=== PATIENT | female | born 1990 | race Hispanic/Latino ===

== ENCOUNTER 2019-05-09 15:25 | Inpatient (IN) | payer MEDICAID, OTHER ==
[2019-05-09 17:02] LABS: Mean Corpuscular Volume 86 fl (79-97)
[2019-05-09 17:08] LABS: Eosinophils % (Auto) 1.6 % (0.0-4.3); Mean Corpuscular HGB Conc 33 % (30-34); Monocytes # (Auto) 0.6 K/mm3 (0.0-0.8); Platelet Count 320 K/mm3 (140-440); Red Blood Count 1.81 M/mm3 (3.65-5.03)
[2019-05-09 17:15] LABS: Hemoglobin 5.1 gm/dl (10.1-14.3)
[2019-05-09 17:16] LABS: Hematocrit 15.6 % (30.3-42.9); Red Cell Distribution Width 28.3 % (13.2-15.2)
[2019-05-09] MEDS ORDERED: SODIUM CHLORIDE 0.9% 500 ML 500 ML IV ONE (17:18)
[2019-05-09] MEDS ORDERED: HYDROcodone/ACETAMINOPHEN 5-325 MG TAB PO ONE (17:20)
[2019-05-09] MEDS ORDERED: ONDANSETRON 4 MG ODT TAB PO ONE (17:20)
--- NOTE | 2019-05-09 17:28 | Emergency Department Report ---
ED General Adult HPI - General Chief complaint: Vaginal Bleeding Stated complaint: VAG BLEED Time Seen by Provider: 05/09/19 17:14 Source: patient Mode of arrival: Stretcher Limitations: No Limitations - History of Present Illness Initial comments: Patient presents to the emergency department with a chief complaint of vaginal bleeding that has been consistent and heavy since the day after Thanksgiving. Patient has a history of dysfunctional uterine bleeding and states she's had multiple blood transfusions in the past secondary to the vaginal bleeding. Patient states her last transfusion was in 2015. Patient complains of feeling weak and short of breath with exertion. Patient denies any chest pain, abdominal pain, headache. Patient does complain of bilateral lower extremity pain secondary to her lymphedema. -: Sudden Location: lower extremity Severity scale (0 -10): 3 Quality: aching Consistency: constant Improves with: none Worsens with: none Associated Symptoms: denies other symptoms Treatments Prior to Arrival: none - Related Data Home Medications Medication Instructions Recorded Confirmed Last Taken Ergocalciferol [Vitamin D2] 50,000 units PO QDAY 05/09/19 05/09/19 Unknown Insulin Aspart (Nf) [NovoLOG 0 unit SUB-Q QACHS 05/09/19 05/09/19 Unknown Flexpen] Levothyroxine Sodium [Synthroid] 300 mcg PO QAM 05/09/19 05/09/19 Unknown Sertraline [Zoloft] 50 mg PO QDAY 05/09/19 05/09/19 Unknown Allergies Allergy/AdvReac Type Severity Reaction Status Date / Time amoxicillin Allergy Shortness Verified 05/09/19 16:02 of Breath Penicillins Allergy Shortness Verified 05/09/19 16:02 of Breath ED Review of Systems ROS: Stated complaint: VAG BLEED Other details as noted in HPI Comment: All other systems reviewed and negative Constitutional: denies: chills, fever Eyes: denies: eye pain, eye discharge, vision change ENT: denies: ear pain, throat pain Respiratory: denies: cough, shortness of breath, wheezing Cardiovascular: denies: chest pain, palpitations Endocrine: no symptoms reported Gastrointestinal: denies: abdominal pain, nausea, diarrhea Genitourinary: other (vaginal bleeding ). denies: urgency, dysuria, discharge Musculoskeletal: denies: back pain, joint swelling, arthralgia Skin: denies: rash, lesions Neurological: denies: headache, weakness, paresthesias Psychiatric: denies: anxiety, depression Hematological/Lymphatic: denies: easy bleeding, easy bruising ED Past Medical Hx - Past Medical History Previous Medical History?: Yes Hx Diabetes: Yes Additional medical history: Hypothyroid, Parth's, Lymphadema, Anemia - Social History Smoking Status: Former Smoker Substance Use Type: Marijuana - Medications Home Medications: Home Medications Medication Instructions Recorded Confirmed Last Taken Type Ergocalciferol [Vitamin D2] 50,000 units PO QDAY 05/09/19 05/09/19 Unknown History Insulin Aspart (Nf) [NovoLOG 0 unit SUB-Q QACHS 05/09/19 05/09/19 Unknown Hi story Flexpen] Levothyroxine Sodium [Synthroid] 300 mcg PO QAM 05/09/19 05/09/19 Unknown His tory Sertraline [Zoloft] 50 mg PO QDAY 05/09/19 05/09/19 Unknown History ED Physical Exam - General Limitations: No Limitations General appearance: alert, in no apparent distress, other (pale and ashen) - Head Head exam: Present: atraumatic, normocephalic - Eye Eye exam: Present: normal appearance - ENT ENT exam: Present: mucous membranes moist - Neck Neck exam: Present: normal inspection - Respiratory Respiratory exam: Present: normal lung sounds bilaterally. Absent: respiratory distress - Cardiovascular Cardiovascular Exam: Present: regular rate, normal rhythm. Absent: systolic murmur, diastolic murmur, rubs, gallop - GI/Abdominal GI/Abdominal exam: Present: soft, normal bowel sounds. Absent: distended, tenderness - Rectal Rectal exam: Present: deferred - External exam: Present: other (deferred) Speculum exam: Present: other (deferred) Bi-manual exam: Present: other (deferred) - Extremities Exam Extremities exam: Present: normal inspection - Back Exam Back exam: Present: normal inspection - Neurological Exam Neurological exam: Present: alert, oriented X3, CN II-XII intact. Absent: motor sensory deficit - Psychiatric Psychiatric exam: Present: normal affect, normal mood - Skin Skin exam: Present: warm, dry, intact, other (pale). Absent: normal color, rash ED Course Vital Signs 05/09/19 05/09/19 05/09/19 17:06 17:08 19:27 Temperature 97.9 F 97.7 F Pulse Rate 67 70 Respiratory 12 12 12 Rate Blood Pressure 71/41 Blood Pressure 75/41 [Left] O2 Sat by Pulse 100 100 Oximetry 05/09/19 05/09/19 05/09/19 19:35 19:45 20:02 Temperature 97.7 F 97.7 F 97.5 F L Pulse Rate 68 65 70 Respiratory 11 L 11 L 13 Rate Blood Pressure 70/34 85/36 94/49 Blood Pressure [Left] O2 Sat by Pulse 100 99 100 Oximetry 05/09/19 05/09/19 05/09/19 20:15 20:30 21:15 Temperature 97.6 F 97.8 F Pulse Rate 79 63 62 Respiratory 11 L 15 12 Rate Blood Pressure 78/45 93/51 76/41 Blood Pressure [Left] O2 Sat by Pulse 100 100 100 Oximetry 05/09/19 05/09/19 05/09/19 21:30 21:45 22:10 Temperature 97.6 F 97.6 F 97.5 F L Pulse Rate 63 65 65 Respiratory 12 13 12 Rate Blood Pressure 79/45 75/44 Blood Pressure 78/45 [Left] O2 Sat by Pulse 99 97 99 Oximetry 05/09/19 22:15 Temperature Pulse Rate 72 Respiratory 14 Rate Blood Pressure Blood Pressure 90/51 [Left] O2 Sat by Pulse 100 Oximetry ED Medical Decision Making - Lab Data Result diagrams: 05/09/19 16:27 Lab Results 05/09/19 05/09/19 05/09/19 Range/Units 16:27 16:27 16:27 WBC 9.3 (4.5-11.0) K/mm3 RBC 1.81 L (3.65-5.03) M/mm3 Hgb 5.1 L* (10.1-14.3) gm/dl Hct 15.6 L* (30.3-42.9) % MCV 86 (79-97) fl MCH 28 (28-32) pg MCHC 33 (30-34) % RDW 28.3 H (13.2-15.2) % Plt Count 320 (140-440) K/mm3 [place] % (Auto) 7.0 (0.0-7.3) % Eos % (Auto) 1.6 (0.0-4.3) % [place] # 0.6 (0.0-0.8) K/mm3 Add Manual Diff Complete Total Counted 100 Seg Neutrophils % 53.6 (40.0-70.0) % Seg Neuts % (Manual) 60.0 (40.0-70.0) % Band Neutrophils % 0 % Lymphocytes % (Manual) 35.0 (13.4-35.0) % Reactive Lymphs % (Man) 0 % Monocytes % (Manual) 2.0 (0.0-7.3) % Eosinophils % (Manual) 3.0 (0.0-4.3) % Basophils % (Manual) 0 (0.0-1.8) % Metamyelocytes % 0 % Myelocytes % 0 % Promyelocytes % 0 % Blast Cells % 0 % Nucleated RBC % Not Reportable Seg Neutrophils # Man 5.6 (1.8-7.7) K/mm3 Band Neutrophils # 0.0 K/mm3 Lymphocytes # (Manual) 3.3 (1.2-5.4) K/mm3 Abs React Lymphs (Man) 0.0 K/mm3 Monocytes # (Manual) 0.2 (0.0-0.8) K/mm3 Eosinophils # (Manual) 0.3 (0.0-0.4) K/mm3 Basophils # (Manual) 0.0 (0.0-0.1) K/mm3 Metamyelocytes # 0.0 K/mm3 Myelocytes # 0.0 K/mm3 Promyelocytes # 0.0 K/mm3 Blast Cells # 0.0 K/mm3 WBC Morphology Not Reportable Hypersegmented Neuts Not Reportable Hyposegmented Neuts Not Reportable Hypogranular Neuts Not Reportable Smudge Cells Not Reportable Toxic Granulation Not Reportable Toxic Vacuolation Not Reportable Dohle Bodies Not Reportable Pelger-Huet Anomaly Not Reportable [place] Rods Not Reportable Platelet Estimate Appears normal Clumped Platelets Not Reportable Plt Clumps, EDTA Not Reportable Large Platelets Not Reportable Giant Platelets Not Reportable Platelet Satelliting Not Reportable Plt Morphology Comment Not Reportable RBC Morphology Not Reportable Dimorphic RBCs Not Reportable Polychromasia Not Reportable Hypochromasia 1+ Poikilocytosis Not Reportable Anisocytosis 2+ Microcytosis 1+ Macrocytosis Not Reportable Spherocytes Not Reportable Pappenheimer Bodies Not Reportable Sickle Cells Not Reportable Target Cells Not Reportable Tear Drop Cells Not Reportable Ovalocytes Not Reportable Helmet Cells Not Reportable [place] Bodies Not Reportable [place] Rings Not Reportable [place] Cells Not Reportable Bite Cells Not Reportable Crenated Cell Not Reportable Elliptocytes Few Acanthocytes (Spur) Not Reportable Rouleaux Not Reportable Hemoglobin C Crystals Not Reportable Schistocytes Not Reportable Malaria parasites Not Reportable Nasim Bodies Not Reportable Hem Pathologist Commnt No POC Glucose (70-105) HCG, Qual Negative (Negative) HCG, Quant < 2 (0-4) mIU/mL Urine Color (Yellow) Urine Turbidity (Clear) Urine pH (5.0-7.0) Ur Specific [place] (1.003-1.030) Urine Protein (Negative) mg/dL Urine Glucose (UA) (Negative) mg/dL Urine Ketones (Negative) mg/dL Urine Blood (Negative) Urine Nitrite (Negative) Urine Bilirubin (Negative) Urine Urobilinogen (<2.0) mg/dL Ur Leukocyte Esterase (Negative) Urine WBC (Auto) (0.0-6.0) /HPF Urine RBC (Auto) (0.0-6.0) /HPF U Epithel Cells (Auto) (0-13.0) /HPF Urine Mucus /HPF Blood Type Antibody Screen Crossmatch 05/09/19 05/09/19 05/09/19 Range/Units 16:27 17:43 20:43 WBC (4.5-11.0) K/mm3 RBC (3.65-5.03) M/mm3 Hgb (10.1-14.3) gm/dl Hct (30.3-42.9) % MCV (79-97) fl MCH (28-32) pg MCHC (30-34) % RDW (13.2-15.2) % Plt Count (140-440) K/mm3 [place] % (Auto) (0.0-7.3) % Eos % (Auto) (0.0-4.3) % [place] # (0.0-0.8) K/mm3 Add Manual Diff Total Counted Seg Neutrophils % (40.0-70.0) % Seg Neuts % (Manual) (40.0-70.0) % Band Neutrophils % % Lymphocytes % (Manual) (13.4-35.0) % Reactive Lymphs % (Man) % Monocytes % (Manual) (0.0-7.3) % Eosinophils % (Manual) (0.0-4.3) % Basophils % (Manual) (0.0-1.8) % Metamyelocytes % % Myelocytes % % Promyelocytes % % Blast Cells % % Nucleated RBC % Seg Neutrophils # Man (1.8-7.7) K/mm3 Band Neutrophils # K/mm3 Lymphocytes # (Manual) (1.2-5.4) K/mm3 Abs React Lymphs (Man) K/mm3 Monocytes # (Manual) (0.0-0.8) K/mm3 Eosinophils # (Manual) (0.0-0.4) K/mm3 Basophils # (Manual) (0.0-0.1) K/mm3 Metamyelocytes # K/mm3 Myelocytes # K/mm3 Promyelocytes # K/mm3 Blast Cells # K/mm3 WBC Morphology Hypersegmented Neuts Hyposegmented Neuts Hypogranular Neuts Smudge Cells Toxic Granulation Toxic Vacuolation Dohle Bodies Pelger-Huet Anomaly [place] Rods Platelet Estimate Clumped Platelets Plt Clumps, EDTA Large Platelets Giant Platelets Platelet Satelliting Plt Morphology Comment RBC Morphology Dimorphic RBCs Polychromasia Hypochromasia Poikilocytosis Anisocytosis Microcytosis Macrocytosis Spherocytes Pappenheimer Bodies Sickle Cells Target Cells Tear Drop Cells Ovalocytes Helmet Cells [place] Bodies [place] Rings [place] Cells Bite Cells Crenated Cell Elliptocytes Acanthocytes (Spur) Rouleaux Hemoglobin C Crystals Schistocytes Malaria parasites Nasim Bodies Hem Pathologist Commnt POC Glucose (70-105) HCG, Qual (Negative) HCG, Quant (0-4) mIU/mL Urine Color Red (Yellow) Urine Turbidity Cloudy (Clear) Urine pH 7.0 (5.0-7.0) Ur Specific [place] 1.035 H (1.003-1.030) Urine Protein >500 (Negative) mg/dL Urine Glucose (UA) 150 (Negative) mg/dL Urine Ketones Neg (Negative) mg/dL Urine Blood Mod (Negative) Urine Nitrite Neg (Negative) Urine Bilirubin Neg (Negative) Urine Urobilinogen < 2.0 (<2.0) mg/dL Ur Leukocyte Esterase Neg (Negative) Urine WBC (Auto) < 1.0 (0.0-6.0) /HPF Urine RBC (Auto) > 182.0 (0.0-6.0) /HPF U Epithel Cells (Auto) 10.0 (0-13.0) /HPF Urine Mucus Few /HPF Blood Type O POSITIVE O POSITIVE Antibody Screen Negative Crossmatch See Detail 05/09/19 Range/Units 21:18 WBC (4.5-11.0) K/mm3 RBC (3.65-5.03) M/mm3 Hgb (10.1-14.3) gm/dl Hct (30.3-42.9) % MCV (79-97) fl MCH (28-32) pg MCHC (30-34) % RDW (13.2-15.2) % Plt Count (140-440) K/mm3 [place] % (Auto) (0.0-7.3) % Eos % (Auto) (0.0-4.3) % [place] # (0.0-0.8) K/mm3 Add Manual Diff Total Counted Seg Neutrophils % (40.0-70.0) % Seg Neuts % (Manual) (40.0-70.0) % Band Neutrophils % % Lymphocytes % (Manual) (13.4-35.0) % Reactive Lymphs % (Man) % Monocytes % (Manual) (0.0-7.3) % Eosinophils % (Manual) (0.0-4.3) % Basophils % (Manual) (0.0-1.8) % Metamyelocytes % % Myelocytes % % Promyelocytes % % Blast Cells % % Nucleated RBC % Seg Neutrophils # Man (1.8-7.7) K/mm3 Band Neutrophils # K/mm3 Lymphocytes # (Manual) (1.2-5.4) K/mm3 Abs React Lymphs (Man) K/mm3 Monocytes # (Manual) (0.0-0.8) K/mm3 Eosinophils # (Manual) (0.0-0.4) K/mm3 Basophils # (Manual) (0.0-0.1) K/mm3 Metamyelocytes # K/mm3 Myelocytes # K/mm3 Promyelocytes # K/mm3 Blast Cells # K/mm3 WBC Morphology Hypersegmented Neuts Hyposegmented Neuts Hypogranular Neuts Smudge Cells Toxic Granulation Toxic Vacuolation Dohle Bodies Pelger-Huet Anomaly [place] Rod[place] Platelet Estimate Clumped Platelets Plt Clumps, EDTA Large Platelets Giant Platelets Platelet Satelliting Plt Morphology Comment RBC Morphology Dimorphic RBCs Polychromasia Hypochromasia Poikilocytosis Anisocytosis Microcytosis Macrocytosis Spherocytes Pappenheimer Bodies Sickle Cells Target Cells Tear Drop Cells Ovalocytes Helmet Cells [place] Bodies [place] Rings [place] Cells Bite Cells Crenated Cell Elliptocytes Acanthocytes (Spur) Rouleaux Hemoglobin C Crystals Schistocytes Malaria parasites Nasim Bodies Hem Pathologist Commnt POC Glucose 135 H (70-105) HCG, Qual (Negative) HCG, Quant (0-4) mIU/mL Urine Color (Yellow) Urine Turbidity (Clear) Urine pH (5.0-7.0) Ur Specific [place] (1.003-1.030) Urine Protein (Negative) mg/dL Urine Glucose (UA) (Negative) mg/dL Urine Ketones (Negative) mg/dL Urine Blood (Negative) Urine Nitrite (Negative) Urine Bilirubin (Negative) Urine Urobilinogen (<2.0) mg/dL Ur Leukocyte Esterase (Negative) Urine WBC (Auto) (0.0-6.0) /HPF Urine RBC (Auto) (0.0-6.0) /HPF U Epithel Cells (Auto) (0-13.0) /HPF Urine Mucus /HPF Blood Type Antibody Screen Crossmatch - Radiology Data Radiology results: report reviewed - Medical Decision Making Patient transfusing the ED with improvement in her blood pressure But with Dr. Mcdonald who is incident response analyst for gynecology stated the patient should be admitted to the hospitalist service and they available for consultation if needed Discussed results with patient Critical Care Time: Yes Critical care time in (mins) excluding proc time.: 45 Critical care attestation.: If time is entered above; I have spent that time in minutes in the direct care of this critically ill patient, excluding procedure time. ED Disposition Clinical Impression: Hypotension, DUB (dysfunctional uterine bleeding), Anemia requiring transfusions Disposition: OP ADMIT IP TO THIS HOSP Is pt being admited?: Yes Does the pt Need Aspirin: No Condition: Fair Referrals: PRIMARY CARE, [Primary Care Provider] - 3-5 Days
[2019-05-09 18:25] LABS: Basophils % (Manual) 0 % (0.0-1.8); Total Cells Counted 100
[2019-05-09 18:27] LABS: Anisocytosis 2+; Hypochromasia 1+
--- NOTE | 2019-05-09 21:12 | Ultrasound Report ---
ULTRASOUND PELVIS INDICATION / CLINICAL INFORMATION: vaginal bleeding. TECHNIQUE: Transabdominal and Transvaginal. Duplex Color Doppler used: Yes. COMPARISON: None available FINDINGS: UTERUS: Present. Anteverted and anteflexed. - Appearance (if present): No significant abnormality. - Size in cm (if present): 10.1 x 3.7 x 4.3. - Endometrial Complex (if present): No significant abnormality.. Thickness in cm (if measured) = 1.3 - Mass lesions: None. - Additional findings: None. RIGHT ADNEXA: The right ovary measures 3.0 x 2.5 x 2.2 cm. A dominant follicle is noted in the right ovary measuring up to 2.0 cm. No significant ovarian cyst or mass. Normal color Doppler blood flow. LEFT ADNEXA: The left ovary measures 2.6 x 1.8 x 2.4 cm. No significant ovarian cyst or mass. Normal color Doppler blood flow. URINARY BLADDER: No significant abnormality. FREE FLUID: None. ADDITIONAL FINDINGS: None. IMPRESSION: 1. No significant abnormality. Signer Name: Shannen Grijalva MD Signed: 05/09/2019 9:08 PM Workstation Name: [id number]
[2019-05-09 21:20] LABS: Bilirubin,Urine NEG (Negative); Blood,Urine MOD (Negative); Color,Urine Red (Yellow); Mucus,Urine FEW /HPF; Urobilinogen,Urine < 2.0 mg/dL (<2.0)
[2019-05-09 21:21] LABS: Protein,Urine >500 mg/dL (Negative); RBC,Urine > 182.0 /HPF (0.0-6.0)
[2019-05-09 21:22] LABS: WBC,Urine < 1.0 /HPF (0.0-6.0)
[2019-05-09] MEDS ORDERED: DEXTROSE 50% IN WATER (25GM) 50 ML SYRINGE IV PRN (22:48)
[2019-05-09] MEDS ORDERED: ALBUTEROL 2.5 MG/3 ML NEBU IH PRN (22:48)
[2019-05-09] MEDS ORDERED: ONDANSETRON 4 MG/2 ML INJ IV PRN (22:48)
[2019-05-09] MEDS ORDERED: ACETAMINOPHEN 325 MG TAB PO PRN (22:48)
[2019-05-09] MEDS ORDERED: diphenhydrAMINE 50 MG/ML VIAL IV PRN (22:52)
[2019-05-09] MEDS ORDERED: SODIUM CHLORIDE 0.9% 1000 ML 1,000 ML IV SCH (23:00)
--- NOTE | 2019-05-09 23:28 | History and Physical Report ---
<DAYNA FOY - Last Filed: 05/09/19 23:23> History of Present Illness Date of examination: 05/09/19 Date of admission: 05/09/2019 Chief complaint: Vaginal Bleeding History of present illness: 28-year-old female with history of dysfunctional uterine bleeding, diabetes, hypothyroidism/Parth's, lymphedema, and chronic anemia who presents to [facility] ED with complaints of vaginal bleeding since 04/19/2019 and generalized weakness. Pt's moises is present at bedside and has assisted in providing history. Patient states that she has been experiencing vaginal bleeding since 04/19/2019 without cessation. She complains of shortness of breath with exertion and generalized weakness. Patient states that relocated from [place] to [place] with her fiance approximately 2 months ago and does not have insurance or a primary care provider. She usually takes iron supplements 3 times a day but has been unable to do so because she ran out of her meds. Admits to receiving blood transfusions in the past, last transfusion was in 2015. Denies n/v/d, fever, headache, hemoptysis, hematemesis, or hematochezia. Admits to mild BLE discomfort related to lymphedema. Past History Past Medical History: anemia (chronic), diabetes, hypothyroidism (Parth's), other (Lymphedema) Past Surgical History: No surgical history Social history: lives with family (Soy and soy's family), other (Former marijuana smoker) Family history: no significant family history Medications and Allergies Allergies Allergy/AdvReac Type Severity Reaction Status Date / Time amoxicillin Allergy Shortness Verified 05/09/19 16:02 of Breath Penicillins Allergy Shortness Verified 05/09/19 16:02 of Breath Home Medications Medication Instructions Recorded Confirmed Last Taken Type Ergocalciferol [Vitamin D2] 50,000 units PO QDAY 05/09/19 05/09/19 Unknown History Insulin Aspart (Nf) [NovoLOG 0 unit SUB-Q QACHS 05/09/19 05/09/19 Unknown History Flexpen] Levothyroxine Sodium [Synthroid] 300 mcg PO QAM 05/09/19 05/09/19 Unknown History Sertraline [Zoloft] 50 mg PO QDAY 05/09/19 05/09/19 Unknown History Active Meds: Active Medications Acetaminophen (Tylenol) 650 mg PO Q4H PRN PRN Reason: Pain MILD(1-3)/Fever >100.5/TORIBIO Albuterol (Proventil) 2.5 mg IH Q3HRT PRN PRN Reason: Shortness Of Breath Dextrose (D50w (25gm) Syringe) 50 ml IV Q30MIN PRN; Protocol PRN Reason: Hypoglycemia Diphenhydramine HCl (Benadryl) 25 mg IV Q6H PRN PRN Reason: Itching Docusate Sodium (Colace) 100 mg PO BID [facility] Ergocalciferol (Vitamin D2) 50,000 unit PO QDAY [facility] Sodium Chloride (Nacl 0.9% 1000 Ml) 1,000 mls @ 75 mls/hr IV DIRECT [facility] Stop: 05/10/19 11:00 Insulin Human Lispro (Humalog) 0 unit SUB-Q ACHS [facility]; Protocol Miscellaneous Medication (Levothyroxine Sodium [Synthroid]) 300 mcg PO QAM [facility] Ondansetron HCl (Zofran) 4 mg IV Q6H PRN PRN Reason: Nausea And Vomiting Sertraline HCl (Zoloft) 50 mg PO QDAY [facility] Sodium Chloride (Sodium Chloride Flush Syringe 10 Ml) 10 ml IV BID [facility] Sodium Chloride (Sodium Chloride Flush Syringe 10 Ml) 10 ml IV PRN PRN PRN Reason: LINE FLUSH Review of Systems All systems: negative Constitutional: fatigue, weakness Cardiovascular: other (Bilateral lower extremity lymphedema) Genitourinary Female: abnormal vaginal bleeding Exam - Physical Exam Narrative exam: Physical exam General appearance: Present: No acute distress, fatigue,oriented 3, obese, adult female - EENT Eyes: Present: PERRL, EOM intact ENT: hearing intact, normal dentition - Neck Neck: Present: supple, normal ROM - Respiratory Respiratory effort: Non-labored Respiratory: Diminished bases - Cardiovascular Heart rate: 60 (bpm) Rhythm: Sinus rhythm Heart Sounds: Present: S1 & S2. Absent: rub, click - Extremities Extremities: no ischemia, pulses intact, bilateral lower extremity lymphedema - Peripheral Assessment Peripheral Pulses: within normal limits - Abdominal General gastrointestinal: Obese, soft, non-tender, normal bowel sounds - Integumentary Integumentary: Present: warm, dry - Musculoskeletal Musculoskeletal: Able to move all extremities, generalized weakness -Neurological Neurological: CN II-XII intact - Psychiatric Psychiatric: cooperative - Constitutional Vitals: Temp Pulse Resp BP Pulse Ox 97.7 F 62 11 L 95/55 100 05/09/19 23:10 05/09/19 23:10 05/09/19 23:10 05/09/19 23:10 05/09/19 23:10 Results - Labs CBC & Chem 7: 05/09/19 16:27 Labs: Laboratory Last Values WBC 9.3 K/mm3 (4.5-11.0) 05/09/19 16:27 RBC 1.81 M/mm3 (3.65-5.03) L 05/09/19 16:27 Hgb 5.1 gm/dl (10.1-14.3) L* 05/09/19 16:27 Hct 15.6 % (30.3-42.9) L* 05/09/19 16:27 MCV 86 fl (79-97) 05/09/19 16:27 MCH 28 pg (28-32) 05/09/19 16:27 MCHC 33 % (30-34) 05/09/19 16:27 RDW 28.3 % (13.2-15.2) H 05/09/19 16:27 Plt Count 320 K/mm3 (140-440) 05/09/19 16:27 [facility] % (Auto) 7.0 % (0.0-7.3) 05/09/19 16:27 Eos % (Auto) 1.6 % (0.0-4.3) 05/09/19 16:27 [facility] # 0.6 K/mm3 (0.0-0.8) 05/09/19 16:27 Add Manual Diff Complete 05/09/19 16:27 Total Counted 100 05/09/19 16:27 Seg Neutrophils % 53.6 % (40.0-70.0) 05/09/19 16:27 Seg Neuts % (Manual) 60.0 % (40.0-70.0) 05/09/19 16:27 Band Neutrophils % 0 % 05/09/19 16:27 Lymphocytes % (Manual) 35.0 % (13.4-35.0) 05/09/19 16:27 Reactive Lymphs % (Man) 0 % 05/09/19 16:27 Monocytes % (Manual) 2.0 % (0.0-7.3) 05/09/19 16:27 Eosinophils % (Manual) 3.0 % (0.0-4.3) 05/09/19 16:27 Basophils % (Manual) 0 % (0.0-1.8) 05/09/19 16:27 Metamyelocytes % 0 % 05/09/19 16:27 Myelocytes % 0 % 05/09/19 16:27 Promyelocytes % 0 % 05/09/19 16:27 Blast Cells % 0 % 05/09/19 16:27 Nucleated RBC % Not Reportable 05/09/19 16:27 Seg Neutrophils # Man 5.6 K/mm3 (1.8-7.7) 05/09/19 16:27 Band Neutrophils # 0.0 K/mm3 05/09/19 16:27 Lymphocytes # (Manual) 3.3 K/mm3 (1.2-5.4) 05/09/19 16:27 Abs React Lymphs (Man) 0.0 K/mm3 05/09/19 16:27 Monocytes # (Manual) 0.2 K/mm3 (0.0-0.8) 05/09/19 16:27 Eosinophils # (Manual) 0.3 K/mm3 (0.0-0.4) 05/09/19 16:27 Basophils # (Manual) 0.0 K/mm3 (0.0-0.1) 05/09/19 16:27 Metamyelocytes # 0.0 K/mm3 05/09/19 16:27 Myelocytes # 0.0 K/mm3 05/09/19 16:27 Promyelocytes # 0.0 K/mm3 05/09/19 16:27 Blast Cells # 0.0 K/mm3 05/09/19 16:27 WBC Morphology Not Reportable 05/09/19 16:27 Hypersegmented Neuts Not Reportable 05/09/19 16:27 Hyposegmented Neuts Not Reportable 05/09/19 16:27 Hypogranular Neuts Not Reportable 05/09/19 16:27 Smudge Cells Not Reportable 05/09/19 16:27 Toxic Granulation Not Reportable 05/09/19 16:27 Toxic Vacuolation Not Reportable 05/09/19 16:27 Dohle Bodies Not Reportable 05/09/19 16:27 Pelger-Huet Anomaly Not Reportable 05/09/19 16:27 Cliff Rods Not Reportable 05/09/19 16:27 Platelet Estimate Appears normal 05/09/19 16:27 Clumped Platelets Not Reportable 05/09/19 16:27 Plt Clumps, EDTA Not Reportable 05/09/19 16:27 Large Platelets Not Reportable 05/09/19 16:27 Giant Platelets Not Reportable 05/09/19 16:27 Platelet Satelliting Not Reportable 05/09/19 16:27 Plt Morphology Comment Not Reportable 05/09/19 16:27 RBC Morphology Not Reportable 05/09/19 16:27 Dimorphic RBCs Not Reportable 05/09/19 16:27 Polychromasia Not Reportable 05/09/19 16:27 Hypochromasia 1+ 05/09/19 16:27 Poikilocytosis Not Reportable 05/09/19 16:27 Anisocytosis 2+ 05/09/19 16:27 Microcytosis 1+ 05/09/19 16:27 Macrocytosis Not Reportable 05/09/19 16:27 Spherocytes Not Reportable 05/09/19 16:27 Pappenheimer Bodies Not Reportable 05/09/19 16:27 Sickle Cells Not Reportable 05/09/19 16:27 Target Cells Not Reportable 05/09/19 16:27 Tear Drop Cells Not Reportable 05/09/19 16:27 Ovalocytes Not Reportable 05/09/19 16:27 Helmet Cells Not Reportable 05/09/19 16:27 Stevens-Wimberley Bodies Not Reportable 05/09/19 16:27 Dubois Rings Not Reportable 05/09/19 16:27 [place] Cells Not Reportable 05/09/19 16:27 Bite Cells Not Reportable 05/09/19 16:27 Crenated Cell Not Reportable 05/09/19 16:27 Elliptocytes Few 05/09/19 16:27 Acanthocytes (Spur) Not Reportable 05/09/19 16:27 Rouleaux Not Reportable 05/09/19 16:27 Hemoglobin C Crystals Not Reportable 05/09/19 16:27 Schistocytes Not Reportable 05/09/19 16:27 Malaria parasites Not Reportable 05/09/19 16:27 Nasim Bodies Not Reportable 05/09/19 16:27 Hem Pathologist Commnt No 05/09/19 16:27 POC Glucose 135 (70-105) H 05/09/19 21:18 HCG, Qual Negative (Negative) 05/09/19 16:27 HCG, Quant < 2 mIU/mL (0-4) 05/09/19 16:27 Urine Color Red (Yellow) 05/09/19 20:43 Urine Turbidity Cloudy (Clear) 05/09/19 20:43 Urine pH 7.0 (5.0-7.0) 05/09/19 20:43 Ur Specific [place]wich 1.035 (1.003-1.030) H 05/09/19 20:43 Urine Protein >500 mg/dL (Negative) 05/09/19 20:43 Urine Glucose (UA) 150 mg/dL (Negative) 05/09/19 20:43 Urine Ketones Neg mg/dL (Negative) 05/09/19 20:43 Urine Blood Mod (Negative) 05/09/19 20:43 Urine Nitrite Neg (Negative) 05/09/19 20:43 Urine Bilirubin Neg (Negative) 05/09/19 20:43 Urine Urobilinogen < 2.0 mg/dL (<2.0) 05/09/19 20:43 Ur Leukocyte Esterase Neg (Negative) 05/09/19 20:43 Urine WBC (Auto) < 1.0 /HPF (0.0-6.0) 05/09/19 20:43 Urine RBC (Auto) > 182.0 /HPF (0.0-6.0) 05/09/19 20:43 U Epithel Cells (Auto) 10.0 /HPF (0-13.0) 05/09/19 20:43 Urine Mucus Few /HPF 05/09/19 20:43 Blood Type O POSITIVE 05/09/19 17:43 Antibody Screen Negative 05/09/19 17:43 Crossmatch See Detail 05/09/19 17:43 - Imaging and Cardiology Imaging and Cardiology: Pelvic US: FINDINGS: UTERUS: Present. Anteverted and anteflexed. - Appearance (if present): No significant abnormality. - Size in cm (if present): 10.1 x 3.7 x 4.3. - Endometrial Complex (if present): No significant abnormality.. Thickness in cm (if measured) = 1.3 - Mass lesions: None. - Additional findings: None. RIGHT ADNEXA: The right ovary measures 3.0 x 2.5 x 2.2 cm. A dominant follicle is noted in the right ovary measuring up to 2.0 cm. No significant ovarian cyst or mass. Normal color Doppler blood flow. LEFT ADNEXA: The left ovary measures 2.6 x 1.8 x 2.4 cm. No significant ovarian cyst or mass. Normal color Doppler blood flow. URINARY BLADDER: No significant abnormality. FREE FLUID: None. ADDITIONAL FINDINGS: None. IMPRESSION: 1. No significant abnormality. Trans vaginal US: FINDINGS: UTERUS: Present. Anteverted and anteflexed. - Appearance (if present): No significant abnormality. - Size in cm (if present): 10.1 x 3.7 x 4.3. - Endometrial Complex (if present): No significant abnormality.. Thickness in cm (if measured) = 1.3 - Mass lesions: None. - Additional findings: None. RIGHT ADNEXA: The right ovary measures 3.0 x 2.5 x 2.2 cm. A dominant follicle is noted in the right ovary measuring up to 2.0 cm. No significant ovarian cyst or mass. Normal color Doppler blood flow. LEFT ADNEXA: The left ovary measures 2.6 x 1.8 x 2.4 cm. No significant ovarian cyst or mass. Normal color Doppler blood flow. URINARY BLADDER: No significant abnormality. FREE FLUID: None. ADDITIONAL FINDINGS: None. IMPRESSION: 1. No significant abnormality. Assessment and Plan Assessment and plan: 28-year-old female with history of dysfunctional uterine bleeding, diabetes, hypothyroidism/Parth's, lymphedema, and chronic anemia who presents to [facility] ED with complaints of vaginal bleeding since 04/19/2019 and generalized weakness. Dysfunctional uterine bleeding -Vaginal bleeding without cessation since 04/19/19 -Pelvic US and Transvaginal US unrevealing for significant abnormality -[employer] consulted Anemia -Hemoglobin on admission 5.1 -Symptomatic -Hx dysfunctional uterine bleeding -Active Vaginal bleeding since04/19/19 -Hx Anemia -Continue Iron supplements 325mg TID -3 units PRBC ordered in ED -Continue to monitor hemoglobin -Transfuse as needed Hypotension -BP on admission 74/44, -Responsive to fluid resuscitation -On IVF -Continue to monitor BP DM -POC BG monitoring -SSI coverage prn -HgbA1C pending Hypothyroidism/Parth's -Continue home Synthroid dose -TSH and T4 pending DVT PPX -On SCD's Advance Directives: No VTE prophylaxis?: Mechanical Plan of care discussed with patient/family: Yes <ASUNCION POTTER - Last Filed: 05/10/19 02:33> History of Present Illness Date of admission: 05/09/19 22:48 Medications and Allergies Active Meds: Active Medications Acetaminophen (Tylenol) 650 mg PO Q4H PRN PRN Reason: Pain MILD(1-3)/Fever >100.5/TORIBIO Albuterol (Proventil) 2.5 mg IH Q3HRT PRN PRN Reason: Shortness Of Breath Dextrose (D50w (25gm) Syringe) 50 ml IV Q30MIN PRN; Protocol PRN Reason: Hypoglycemia Diphenhydramine HCl (Benadryl) 25 mg IV Q6H PRN PRN Reason: Itching Docusate Sodium (Colace) 100 mg PO BID [facility] Ergocalciferol (Vitamin D2) 50,000 unit PO QDAY [facility] Ferrous Sulfate (Feosol) 325 mg PO TID [facility] Sodium Chloride (Nacl 0.9% 1000 Ml) 1,000 mls @ 75 mls/hr IV DIRECT [facility] Stop: 05/10/19 11:00 Insulin Human Lispro (Humalog) 0 unit SUB-Q ACHS [facility]; Protocol Levothyroxine Sodium (Synthroid) 300 mcg PO DAILY@0600 [facility] Morphine Sulfate (Morphine) 2 mg IV Q4H PRN PRN Reason: Pain, Moderate (4-6) Ondansetron HCl (Zofran) 4 mg IV Q6H PRN PRN Reason: Nausea And Vomiting Sertraline HCl (Zoloft) 50 mg PO QDAY [facility] Sodium Chloride (Sodium Chloride Flush Syringe 10 Ml) 10 ml IV BID [facility] Sodium Chloride (Sodium Chloride Flush Syringe 10 Ml) 10 ml IV PRN PRN PRN Reason: LINE FLUSH Exam - Constitutional Vitals: Temp Pulse Resp BP Pulse Ox 97.7 F 64 16 93/52 100 05/10/19 00:43 05/10/19 00:43 05/10/19 00:43 05/10/19 00:43 05/10/19 00:43 Results - Labs CBC & Chem 7: 05/09/19 16:27 Labs: Laboratory Last Values WBC 9.3 K/mm3 (4.5-11.0) 05/09/19 16:27 RBC 1.81 M/mm3 (3.65-5.03) L 05/09/19 16:27 Hgb 5.1 gm/dl (10.1-14.3) L* 05/09/19 16:27 Hct 15.6 % (30.3-42.9) L* 05/09/19 16:27 MCV 86 fl (79-97) 05/09/19 16:27 MCH 28 pg (28-32) 05/09/19 16:27 MCHC 33 % (30-34) 05/09/19 16:27 RDW 28.3 % (13.2-15.2) H 05/09/19 16:27 Plt Count 320 K/mm3 (140-440) 05/09/19 16:27 [facility] % (Auto) 7.0 % (0.0-7.3) 05/09/19 16:27 Eos % (Auto) 1.6 % (0.0-4.3) 05/09/19 16:27 [facility] # 0.6 K/mm3 (0.0-0.8) 05/09/19 16:27 Add Manual Diff Complete 05/09/19 16:27 Total Counted 100 05/09/19 16:27 Seg Neutrophils % 53.6 % (40.0-70.0) 05/09/19 16:27 Seg Neuts % (Manual) 60.0 % (40.0-70.0) 05/09/19 16:27 Band Neutrophils % 0 % 05/09/19 16:27 Lymphocytes % (Manual) 35.0 % (13.4-35.0) 05/09/19 16:27 Reactive Lymphs % (Man) 0 % 05/09/19 16:27 Monocytes % (Manual) 2.0 % (0.0-7.3) 05/09/19 16:27 Eosinophils % (Manual) 3.0 % (0.0-4.3) 05/09/19 16:27 Basophils % (Manual) 0 % (0.0-1.8) 05/09/19 16:27 Metamyelocytes % 0 % 05/09/19 16:27 Myelocytes % 0 % 05/09/19 16:27 Promyelocytes % 0 % 05/09/19 16:27 Blast Cells % 0 % 05/09/19 16:27 Nucleated RBC % Not Reportable 05/09/19 16:27 Seg Neutrophils # Man 5.6 K/mm3 (1.8-7.7) 05/09/19 16:27 Band Neutrophils # 0.0 K/mm3 05/09/19 16:27 Lymphocytes # (Manual) 3.3 K/mm3 (1.2-5.4) 05/09/19 16:27 Abs React Lymphs (Man) 0.0 K/mm3 05/09/19 16:27 Monocytes # (Manual) 0.2 K/mm3 (0.0-0.8) 05/09/19 16:27 Eosinophils # (Manual) 0.3 K/mm3 (0.0-0.4) 05/09/19 16:27 Basophils # (Manual) 0.0 K/mm3 (0.0-0.1) 05/09/19 16:27 Metamyelocytes # 0.0 K/mm3 05/09/19 16:27 Myelocytes # 0.0 K/mm3 05/09/19 16:27 Promyelocytes # 0.0 K/mm3 05/09/19 16:27 Blast Cells # 0.0 K/mm3 05/09/19 16:27 WBC Morphology Not Reportable 05/09/19 16:27 Hypersegmented Neuts Not Reportable 05/09/19 16:27 Hyposegmented Neuts Not Reportable 05/09/19 16:27 Hypogranular Neuts Not Reportable 05/09/19 16:27 Smudge Cells Not Reportable 05/09/19 16:27 Toxic Granulation Not Reportable 05/09/19 16:27 Toxic Vacuolation Not Reportable 05/09/19 16:27 Dohle Bodies Not Reportable 05/09/19 16:27 Pelger-Huet Anomaly Not Reportable 05/09/19 16:27 Cliff Rods Not Reportable 05/09/19 16:27 Platelet Estimate Appears normal 05/09/19 16:27 Clumped Platelets Not Reportable 05/09/19 16:27 Plt Clumps, EDTA Not Reportable 05/09/19 16:27 Large Platelets Not Reportable 05/09/19 16:27 Giant Platelets Not Reportable 05/09/19 16:27 Platelet Satelliting Not Reportable 05/09/19 16:27 Plt Morphology Comment Not Reportable 05/09/19 16:27 RBC Morphology Not Reportable 05/09/19 16:27 Dimorphic RBCs Not Reportable 05/09/19 16:27 Polychromasia Not Reportable 05/09/19 16:27 Hypochromasia 1+ 05/09/19 16:27 Poikilocytosis Not Reportable 05/09/19 16:27 Anisocytosis 2+ 05/09/19 16:27 Microcytosis 1+ 05/09/19 16:27 Macrocytosis Not Reportable 05/09/19 16:27 Spherocytes Not Reportable 05/09/19 16:27 Pappenheimer Bodies Not Reportable 05/09/19 16:27 Sickle Cells Not Reportable 05/09/19 16:27 Target Cells Not Reportable 05/09/19 16:27 Tear Drop Cells Not Reportable 05/09/19 16:27 Ovalocytes Not Reportable 05/09/19 16:27 Helmet Cells Not Reportable 05/09/19 16:27 Stevens-Wimberley Bodies Not Reportable 05/09/19 16:27 Dubois Rings Not Reportable 05/09/19 16:27 [place] Cells Not Reportable 05/09/19 16:27 Bite Cells Not Reportable 05/09/19 16:27 Crenated Cell Not Reportable 05/09/19 16:27 Elliptocytes Few 05/09/19 16:27 Acanthocytes (Spur) Not Reportable 05/09/19 16:27 Rouleaux Not Reportable 05/09/19 16:27 Hemoglobin C Crystals Not Reportable 05/09/19 16:27 Schistocytes Not Reportable 05/09/19 16:27 Malaria parasites Not Reportable 05/09/19 16:27 Nasim Bodies Not Reportable 05/09/19 16:27 Hem Pathologist Commnt No 05/09/19 16:27 POC Glucose 135 (70-105) H 05/09/19 21:18 HCG, Qual Negative (Negative) 05/09/19 16:27 HCG, Quant < 2 mIU/mL (0-4) 05/09/19 16:27 Urine Color Red (Yellow) 05/09/19 20:43 Urine Turbidity Cloudy (Clear) 05/09/19 20:43 Urine pH 7.0 (5.0-7.0) 05/09/19 20:43 Ur Specific [place] 1.035 (1.003-1.030) H 05/09/19 20:43 Urine Protein >500 mg/dL (Negative) 05/09/19 20:43 Urine Glucose (UA) 150 mg/dL (Negative) 05/09/19 20:43 Urine Ketones Neg mg/dL (Negative) 05/09/19 20:43 Urine Blood Mod (Negative) 05/09/19 20:43 Urine Nitrite Neg (Negative) 05/09/19 20:43 Urine Bilirubin Neg (Negative) 05/09/19 20:43 Urine Urobilinogen < 2.0 mg/dL (<2.0) 05/09/19 20:43 Ur Leukocyte Esterase Neg (Negative) 05/09/19 20:43 Urine WBC (Auto) < 1.0 /HPF (0.0-6.0) 05/09/19 20:43 Urine RBC (Auto) > 182.0 /HPF (0.0-6.0) 05/09/19 20:43 U Epithel Cells (Auto) 10.0 /HPF (0-13.0) 05/09/19 20:43 Urine Mucus Few /HPF 05/09/19 20:43 Blood Type O POSITIVE 05/09/19 17:43 Antibody Screen Negative 05/09/19 17:43 Crossmatch See Detail 05/09/19 17:43 Assessment and Plan Assessment and plan: Patient seen and examined, discussed with nurse practitioner, agree with plan as stated above
[2019-05-10] MEDS: MORPHINE 2 MG/1 ML INJ IV PRN ×2 (02:38→10:04)
[2019-05-10] MEDS: LEVOTHYROXINE 150 MCG TAB PO SCH (06:21)
[2019-05-10 08:47] LABS: Hematocrit 20.2 % (30.3-42.9); Hemoglobin 6.7 gm/dl (10.1-14.3)
[2019-05-10] MEDS: INSULIN LISPRO 100 UNIT/ML SUB-Q SCH ×4 (08:57→22:35)
[2019-05-10] MEDS: FERROUS SULFATE 325 MG TAB PO SCH ×3 (09:08→22:35)
[2019-05-10 09:20] LABS: Calcium 9.1 mg/dL (8.4-10.2)
[2019-05-10] MEDS: DOCUSATE SODIUM 100 MG CAP PO SCH ×2 (09:57→22:33)
[2019-05-10] MEDS: SERTRALINE 50 MG TAB PO SCH (09:57)
[2019-05-10] MEDS ORDERED: LEVOTHYROXINE SODIUM 300 MCG PO SCH (10:00)
[2019-05-10] MEDS ORDERED: ERGOCALCIFEROL (VIT D2) 50,000 UNIT CAP PO SCH (10:00)
[2019-05-10] MEDS ORDERED: medroxyPROGESTERone ACETATE 150 MG/ML SYRINGE IM ONE (14:00)
[2019-05-10] MEDS: SODIUM CHLORIDE 0.9% 1000 ML 1,000 ML IV SCH ×2 (14:50→22:25)
--- NOTE | 2019-05-10 14:52 | Progress Note ---
Assessment and Plan Assessment and plan: 28-year-old female with history of dysfunctional uterine bleeding, diabetes, hypothyroidism/Parth's, lymphedema, and chronic anemia who presents to [facility] ED with complaints of vaginal bleeding since 04/19/2019 and generalized weakness. Dysfunctional uterine bleeding -Vaginal bleeding without cessation since 04/19/19 -Pelvic US and Transvaginal US unrevealing for significant abnormality and pending at the time of my exam -Per family this has happened before resolved only with Depakote shots. -PRESIDENT AND CHIEF COMMERCIAL OFFICER consulted Anticipate discharge in a.m. following evaluation by PRESIDENT AND CHIEF COMMERCIAL OFFICER and stability of hemoglobin. Anemia -Hemoglobin on admission 5.1 -Symptomatic -Hx dysfunctional uterine bleeding -Active Vaginal bleeding since04/19/19 -Hx Anemia -Continue Iron supplements 325mg TID -3 units PRBC ordered in ED -Continue to monitor hemoglobin -Transfuse as needed Hypotension -BP on admission 74/44, -Responsive to fluid resuscitation -On IVF -Continue to monitor BP DM -POC BG monitoring -SSI coverage prn -HgbA1C pending Hypothyroidism/Parth's -Continue home Synthroid dose -TSH and T4 pending Morbid obesity -Weight loss management recommended and discussed in detail DVT PPX -On SCD's History Interval history: Patient seen and examined. While in the room patient is accompanied by her fianc who informs me that the patient has had persistent bleeding since March. And still continues. Patient denies any chest pain. But still very dizzy and for that reason wants to continue laying down. Has not been seen by PRESIDENT AND CHIEF COMMERCIAL OFFICER at this time. Hospitalist Physical - Physical exam Narrative exam: VITAL SIGNS: Reviewed. GENERAL: The patient appears normally developed, morbidly obese, lethargic vital signs as documented. HEAD: No signs of head trauma. EYES: Pupils are equal. Extraocular motions intact. EARS: Hearing grossly intact. MOUTH: Oropharynx is normal. NECK: No adenopathy, no JVD. CHEST: Chest with clear breath sounds bilaterally. No wheezes, rales, or rhonchi. CARDIAC: Regular rate and rhythm. S1 and S2, without murmurs, gallops, or rubs. VASCULAR: No Edema. Peripheral pulses normal and equal in all extremities. ABDOMEN: Soft, non tender and non distended. No rebound or guarding, and no masses palpated. Bowel Sounds normal. MUSCULOSKELETAL: Good range of motion of all major joints. Extremities without clubbing, cyanosis or edema. NEUROLOGIC EXAM: Awake but very lethargic and oriented x 3 No focal sensory or strength deficits. Speech normal. Follows commands. PSYCHIATRIC: Mood normal. SKIN: detial exam as documented in skin assessment - Constitutional Vitals: Temp Pulse Resp BP Pulse Ox 97.9 F 68 18 85/43 97 05/10/19 12:08 05/10/19 12:08 05/10/19 12:08 05/10/19 12:08 05/10/19 12:08 Results - Labs CBC & Chem 7: 05/10/19 07:31 05/10/19 07:31 Labs: Laboratory Last Values WBC 9.3 K/mm3 (4.5-11.0) 05/09/19 16:27 RBC 1.81 M/mm3 (3.65-5.03) L 05/09/19 16:27 Hgb 6.7 gm/dl (10.1-14.3) L 05/10/19 07:31 Hct 20.2 % (30.3-42.9) L 05/10/19 07:31 MCV 86 fl (79-97) 05/09/19 16:27 MCH 28 pg (28-32) 05/09/19 16:27 MCHC 33 % (30-34) 05/09/19 16:27 RDW 28.3 % (13.2-15.2) H 05/09/19 16:27 Plt Count 320 K/mm3 (140-440) 05/09/19 16:27 Crisp % (Auto) 7.0 % (0.0-7.3) 05/09/19 16:27 Eos % (Auto) 1.6 % (0.0-4.3) 05/09/19 16:27 Crisp # 0.6 K/mm3 (0.0-0.8) 05/09/19 16:27 Add Manual Diff Complete 05/09/19 16:27 Total Counted 100 05/09/19 16:27 Seg Neutrophils % 53.6 % (40.0-70.0) 05/09/19 16:27 Seg Neuts % (Manual) 60.0 % (40.0-70.0) 05/09/19 16:27 Band Neutrophils % 0 % 05/09/19 16:27 Lymphocytes % (Manual) 35.0 % (13.4-35.0) 05/09/19 16:27 Reactive Lymphs % (Man) 0 % 05/09/19 16:27 Monocytes % (Manual) 2.0 % (0.0-7.3) 05/09/19 16:27 Eosinophils % (Manual) 3.0 % (0.0-4.3) 05/09/19 16:27 Basophils % (Manual) 0 % (0.0-1.8) 05/09/19 16:27 Metamyelocytes % 0 % 05/09/19 16:27 Myelocytes % 0 % 05/09/19 16:27 Promyelocytes % 0 % 05/09/19 16:27 Blast Cells % 0 % 05/09/19 16:27 Nucleated RBC % Not Reportable 05/09/19 16:27 Seg Neutrophils # Man 5.6 K/mm3 (1.8-7.7) 05/09/19 16:27 Band Neutrophils # 0.0 K/mm3 05/09/19 16:27 Lymphocytes # (Manual) 3.3 K/mm3 (1.2-5.4) 05/09/19 16:27 Abs React Lymphs (Man) 0.0 K/mm3 05/09/19 16:27 Monocytes # (Manual) 0.2 K/mm3 (0.0-0.8) 05/09/19 16:27 Eosinophils # (Manual) 0.3 K/mm3 (0.0-0.4) 05/09/19 16:27 Basophils # (Manual) 0.0 K/mm3 (0.0-0.1) 05/09/19 16:27 Metamyelocytes # 0.0 K/mm3 05/09/19 16:27 Myelocytes # 0.0 K/mm3 05/09/19 16:27 Promyelocytes # 0.0 K/mm3 05/09/19 16:27 Blast Cells # 0.0 K/mm3 05/09/19 16:27 WBC Morphology Not Reportable 05/09/19 16:27 Hypersegmented Neuts Not Reportable 05/09/19 16:27 Hyposegmented Neuts Not Reportable 05/09/19 16:27 Hypogranular Neuts Not Reportable 05/09/19 16:27 Smudge Cells Not Reportable 05/09/19 16:27 Toxic Granulation Not Reportable 05/09/19 16:27 Toxic Vacuolation Not Reportable 05/09/19 16:27 Dohle Bodies Not Reportable 05/09/19 16:27 Pelger-Huet Anomaly Not Reportable 05/09/19 16:27 Cliff Rods Not Reportable 05/09/19 16:27 Platelet Estimate Appears normal 05/09/19 16:27 Clumped Platelets Not Reportable 05/09/19 16:27 Plt Clumps, EDTA Not Reportable 05/09/19 16:27 Large Platelets Not Reportable 05/09/19 16:27 Giant Platelets Not Reportable 05/09/19 16:27 Platelet Satelliting Not Reportable 05/09/19 16:27 Plt Morphology Comment Not Reportable 05/09/19 16:27 RBC Morphology Not Reportable 05/09/19 16:27 Dimorphic RBCs Not Reportable 05/09/19 16:27 Polychromasia Not Reportable 05/09/19 16:27 Hypochromasia 1+ 05/09/19 16:27 Poikilocytosis Not Reportable 05/09/19 16:27 Anisocytosis 2+ 05/09/19 16:27 Microcytosis 1+ 05/09/19 16:27 Macrocytosis Not Reportable 05/09/19 16:27 Spherocytes Not Reportable 05/09/19 16:27 Pappenheimer Bodies Not Reportable 05/09/19 16:27 Sickle Cells Not Reportable 05/09/19 16:27 Target Cells Not Reportable 05/09/19 16:27 Tear Drop Cells Not Reportable 05/09/19 16:27 Ovalocytes Not Reportable 05/09/19 16:27 Helmet Cells Not Reportable 05/09/19 16:27 [place] Bodies Not Reportable 05/09/19 16:27 [place] Rings Not Reportable 05/09/19 16:27 Santos Cells Not Reportable 05/09/19 16:27 Bite Cells Not Reportable 05/09/19 16:27 Crenated Cell Not Reportable 05/09/19 16:27 Elliptocytes Few 05/09/19 16:27 Acanthocytes (Spur) Not Reportable 05/09/19 16:27 Rouleaux Not Reportable 05/09/19 16:27 Hemoglobin C Crystals Not Reportable 05/09/19 16:27 Schistocytes Not Reportable 05/09/19 16:27 Malaria parasites Not Reportable 05/09/19 16:27 Nasim Bodies Not Reportable 05/09/19 16:27 Hem Pathologist Commnt No 05/09/19 16:27 Sodium 136 mmol/L (137-145) L 05/10/19 07:31 Potassium 4.2 mmol/L (3.6-5.0) 05/10/19 07:31 Chloride 101.9 mmol/L (98-107) 05/10/19 07:31 Carbon Dioxide 20 mmol/L (22-30) L 05/10/19 07:31 Anion Gap 18 mmol/L 05/10/19 07:31 BUN 16 mg/dL (7-17) 05/10/19 07:31 Creatinine 1.4 mg/dL (0.7-1.2) H 05/10/19 07:31 Estimated GFR 45 ml/min 05/10/19 07:31 BUN/Creatinine Ratio 11 % 05/10/19 07:31 Glucose 92 mg/dL (65-100) 05/10/19 07:31 POC Glucose 109 (70-105) H 05/10/19 12:22 Hemoglobin A1c 6.9 % (4-6) H 05/09/19 16:27 Calcium 9.1 mg/dL (8.4-10.2) 05/10/19 07:31 Total Bilirubin 0.40 mg/dL (0.1-1.2) 05/10/19 07:31 AST 35 units/L (5-40) 05/10/19 07:31 ALT 20 units/L (7-56) 05/10/19 07:31 Alkaline Phosphatase 227 units/L (35-129) H 05/10/19 07:31 Total Protein 7.2 g/dL (6.3-8.2) 05/10/19 07:31 Albumin 4.0 g/dL (3.9-5) 05/10/19 07:31 Albumin/Globulin Ratio 1.3 % 05/10/19 07:31 TSH 235.500 mlU/mL (0.270-4.200) H 05/10/19 07:31 Thyroxine (T4) 0.7 ug/dL (4.0-12.0) L 05/10/19 07:31 HCG, Qual Negative (Negative) 05/09/19 16:27 HCG, Quant < 2 mIU/mL (0-4) 05/09/19 16:27 Urine Color Red (Yellow) 05/09/19 20:43 Urine Turbidity Cloudy (Clear) 05/09/19 20:43 Urine pH 7.0 (5.0-7.0) 05/09/19 20:43 Ur Specific [place] 1.035 (1.003-1.030) H 05/09/19 20:43 Urine Protein >500 mg/dL (Negative) 05/09/19 20:43 Urine Glucose (UA) 150 mg/dL (Negative) 05/09/19 20:43 Urine Ketones Neg mg/dL (Negative) 05/09/19 20:43 Urine Blood Mod (Negative) 05/09/19 20:43 Urine Nitrite Neg (Negative) 05/09/19 20:43 Urine Bilirubin Neg (Negative) 05/09/19 20:43 Urine Urobilinogen < 2.0 mg/dL (<2.0) 05/09/19 20:43 Ur Leukocyte Esterase Neg (Negative) 05/09/19 20:43 Urine WBC (Auto) < 1.0 /HPF (0.0-6.0) 05/09/19 20:43 Urine RBC (Auto) > 182.0 /HPF (0.0-6.0) 05/09/19 20:43 U Epithel Cells (Auto) 10.0 /HPF (0-13.0) 05/09/19 20:43 Urine Mucus Few /HPF 05/09/19 20:43 Blood Type O POSITIVE 05/09/19 17:43 Antibody Screen Negative 05/09/19 17:43 Crossmatch See Detail 05/09/19 17:43 Active Medications - Current Medications Current Medications: Generic Name Dose Route Start Last Admin Trade Name Freq PRN Reason Stop Dose Admin Acetaminophen 650 mg 05/09/19 22:48 Tylenol PO Q4H PRN Pain MILD(1-3)/Fever >100.5/TORIBIO Albuterol 2.5 mg 05/09/19 22:48 Proventil IH Q3HRT PRN Shortness Of Breath Dextrose 50 ml 05/09/19 22:48 D50w (25gm) Syringe IV Q30MIN PRN Hypoglycemia Protocol Diphenhydramine HCl 25 mg 05/09/19 22:52 Benadryl IV Q6H PRN Itching Docusate Sodium 100 mg 05/10/19 10:00 05/10/19 09:57 Colace PO Not Given BID BLAYNE Ergocalciferol 50,000 unit 05/10/19 10:00 05/10/19 09:57 Vitamin D2 PO 50,000 unit QDAY BLAYNE Administration Ferrous Sulfate 325 mg 05/10/19 08:00 05/10/19 13:22 Feosol PO 325 mg TID BLAYNE Administration Sodium Chloride 1,000 mls @ 200 mls/hr 05/10/19 09:30 Nacl 0.9% 1000 Ml IV DIRECT [facility] Insulin Human Lispro 0 unit 05/10/19 07:30 05/10/19 12:43 Humalog SUB-Q Not Given ACHS [facility] Protocol Levothyroxine Sodium 300 mcg 05/10/19 06:00 05/10/19 06:21 Synthroid PO 300 mcg DAILY@0600 BLAYNE Administration Ondansetron HCl 4 mg 05/09/19 22:48 Zofran IV Q6H PRN Nausea And Vomiting Sertraline HCl 50 mg 05/10/19 10:00 05/10/19 09:57 Zoloft PO 50 mg QDAY BLAYNE Administration Sodium Chloride 10 ml 05/10/19 10:00 05/10/19 09:59 Sodium Chloride Flush Syringe 10 Ml IV 10 ml BID BLAYNE Administration Sodium Chloride 10 ml 05/09/19 22:48 Sodium Chloride Flush Syringe 10 Ml IV PRN PRN LINE FLUSH
[2019-05-11] MEDS: SODIUM CHLORIDE 0.9% 1000 ML 1,000 ML IV SCH ×3 (03:43→23:00)
[2019-05-11 05:37] LABS: Mean Corpuscular HGB Conc 33 % (30-34); Mean Corpuscular Volume 88 fl (79-97); Platelet Count 223 K/mm3 (140-440); Red Blood Count 2.11 M/mm3 (3.65-5.03)
[2019-05-11 05:42] LABS: Red Cell Distribution Width 22.7 % (13.2-15.2)
[2019-05-11 05:43] LABS: Hematocrit 18.5 % (30.3-42.9); Hemoglobin 6.1 gm/dl (10.1-14.3)
[2019-05-11 05:55] LABS: Calcium 8.5 mg/dL (8.4-10.2)
[2019-05-11] MEDS: LEVOTHYROXINE 150 MCG TAB PO SCH (06:11)
[2019-05-11] MEDS ORDERED: MORPHINE 2 MG/1 ML INJ IV ONE (06:48)
[2019-05-11] MEDS ORDERED: SODIUM CHLORIDE 0.9% 500 ML 500 ML IV ONE (06:49)
--- NOTE | 2019-05-11 06:51 | Event Note ---
Date: 05/11/19 Hgb 6.1 this morning pt still having vaginal bleeding. Will order 2U PRBC. follow up on post transfusion labs
[2019-05-11] MEDS: INSULIN LISPRO 100 UNIT/ML SUB-Q SCH ×4 (08:00→22:42)
[2019-05-11] MEDS: DOCUSATE SODIUM 100 MG CAP PO SCH ×3 (10:45→22:41)
[2019-05-11] MEDS: SERTRALINE 50 MG TAB PO SCH (10:45)
[2019-05-11] MEDS: FERROUS SULFATE 325 MG TAB PO SCH ×3 (10:49→22:41)
--- NOTE | 2019-05-11 14:17 | Progress Note ---
Assessment and Plan 28-year-old female with history of dysfunctional uterine bleeding, diabetes, hypothyroidism/Parth's, lymphedema, and chronic anemia who presents to [facility] ED with complaints of vaginal bleeding since 04/19/2019 and generalized weakness. Dysfunctional uterine bleeding -Vaginal bleeding without cessation since 04/19/19 -Pelvic US and Transvaginal US unrevealing for significant abnormality and pending at the time of my exam -Per family this has happened before resolved only with Depakote shots. -FARMWORKER POULTRY consulted Anticipate discharge in a.m. following evaluation by FARMWORKER POULTRY and stability of hemoglobin. Anemia -Hemoglobin on admission 5.1. Post transfusion hemoglobin improved to 6.1 -Symptomatic -Hx dysfunctional uterine bleeding -Active Vaginal bleeding since04/19/19 -Hx Anemia -Continue Iron supplements 325mg TID -3 units PRBC ordered in ED -Continue to monitor hemoglobin -Transfuse as needed Hypotension -BP on admission 84/46, -Responsive to fluid resuscitation -On IVF -Continue to monitor BP DM With A1c 6.9% -SSI coverage prn Consistent carbohydrate diet Hypothyroidism/Parth's -Continue home Synthroid dose -TSH elevated to 35.5 and T4 low at 0.7 -Weight loss management recommended and discussed in detail DVT PPX -On SCD's only. Avoid anticoagulation because of bleeding Subjective Date of service: 05/11/19 Principal diagnosis: dysfunctional uterine bleeding, severe anemia, Interval history: Laying quietly in bed, complains of weakness, patient's partner in the room. Objective - Exam Narrative Exam: Constitutional: Well-nourished well-developed. In no distress Head: Normocephalic atraumatic Eyes: Conjunctiva palor, Pupils are equal round and reactive to light Nose: No enlarged turbinates, no septal deviation. Mouth: Moist mucous membranes. Neck: Supple no thyromegaly. No bruit. No JVD Heart: Regular rate and rhythm, S1-S2 normal. No rubs murmurs or gallop Lungs: Clear to auscultation bilaterally. no rales or rhonchi Abdomen: Soft, nontender. Bowel sound are present. Extremities: No edema, no cyanosis, no clubbing. Neuro: Alert oriented Oriented x3. No focal sensory or motor deficit. Skin: No rashes or hyperpigmented spots Musculoskeletal system: No joint pain or swelling Hematological: No petechia or subcutanous hemorrhages. Immunological: No multiple septic spots on the skin Lymphatic: No generalized lymphadenopathy Psychiatry: Euthymic. Calm. - Constitutional Vitals: Vital Signs - 12hr 05/11/19 05/11/19 05/11/19 06:44 11:50 13:46 Temperature 98.8 F 98.0 F 98.3 F Pulse Rate 68 72 78 Respiratory 16 18 18 Rate Blood Pressure 86/39 63/27 91/47 O2 Sat by Pulse 97 100 Oximetry 05/11/19 14:01 Temperature 98.4 F Pulse Rate 76 Respiratory 18 Rate Blood Pressure 86/46 O2 Sat by Pulse Oximetry - Labs CBC & Chem 7: 05/11/19 04:47 05/11/19 04:47 Labs: Abnormal lab results 05/09/19 05/10/19 05/10/19 Range/Units 17:43 16:53 21:44 WBC (4.5-11.0) K/mm3 RBC (3.65-5.03) M/mm3 Hgb (10.1-14.3) gm/dl Hct (30.3-42.9) % RDW (13.2-15.2) % Chloride (98-107) mmol/L Carbon Dioxide (22-30) mmol/L Creatinine (0.7-1.2) mg/dL Glucose (65-100) mg/dL POC Glucose 118 H 108 H (70-105) Crossmatch See Detail 05/11/19 05/11/19 05/11/19 Range/Units 04:47 04:47 07:54 WBC 4.3 L (4.5-11.0) K/mm3 RBC 2.11 L (3.65-5.03) M/mm3 Hgb 6.1 L (10.1-14.3) gm/dl Hct 18.5 L* (30.3-42.9) % RDW 22.7 H (13.2-15.2) % Chloride 107.9 H (98-107) mmol/L Carbon Dioxide 20 L (22-30) mmol/L Creatinine 1.3 H (0.7-1.2) mg/dL Glucose 107 H (65-100) mg/dL POC Glucose 110 H (70-105) Crossmatch
[2019-05-12] MEDS: SODIUM CHLORIDE 0.9% 1000 ML 1,000 ML IV SCH ×4 (04:00→22:01)
[2019-05-12] MEDS: LEVOTHYROXINE 150 MCG TAB PO SCH (06:16)
[2019-05-12] MEDS: INSULIN LISPRO 100 UNIT/ML SUB-Q SCH ×4 (07:55→22:05)
[2019-05-12 09:33] LABS: Hematocrit 24.1 % (30.3-42.9); Hemoglobin 8.1 gm/dl (10.1-14.3); Mean Corpuscular HGB Conc 34 % (30-34); Mean Corpuscular Volume 87 fl (79-97); Platelet Count 219 K/mm3 (140-440); Red Blood Count 2.76 M/mm3 (3.65-5.03)
[2019-05-12 09:34] LABS: Red Cell Distribution Width 20.1 % (13.2-15.2)
[2019-05-12] MEDS: FERROUS SULFATE 325 MG TAB PO SCH ×3 (09:46→22:01)
[2019-05-12] MEDS: SERTRALINE 50 MG TAB PO SCH (09:46)
[2019-05-12] MEDS: DOCUSATE SODIUM 100 MG CAP PO SCH ×2 (09:47→22:04)
[2019-05-12 10:03] LABS: Albumin 3.8 g/dL (3.9-5); Calcium 8.4 mg/dL (8.4-10.2)
--- NOTE | 2019-05-12 10:22 | Progress Note ---
Subjective Date of service: 05/12/19 Principal diagnosis: dysfunctional uterine bleeding, severe anemia, Interval history: Laying quietly in bed, complains of weakness, patient's partner in the room. Still having slight vaginal bleeding Objective - Exam Narrative Exam: Constitutional: Well-nourished well-developed. In no distress Head: Normocephalic atraumatic Eyes: Conjunctiva palor, Pupils are equal round and reactive to light Nose: No enlarged turbinates, no septal deviation. Mouth: Moist mucous membranes. Neck: Supple no thyromegaly. No bruit. No JVD Heart: Regular rate and rhythm, S1-S2 normal. No rubs murmurs or gallop Lungs: Clear to auscultation bilaterally. no rales or rhonchi Abdomen: Soft, nontender. Bowel sound are present. Extremities: No edema, no cyanosis, no clubbing. Neuro: Alert oriented Oriented x3. No focal sensory or motor deficit. Skin: No rashes or hyperpigmented spots Musculoskeletal system: No joint pain or swelling Hematological: No petechia or subcutanous hemorrhages. Immunological: No multiple septic spots on the skin Lymphatic: No generalized lymphadenopathy Psychiatry: Euthymic. Calm. - Constitutional Vitals: Vital Signs - 12hr 05/11/19 05/12/19 22:41 04:36 Temperature 98.2 F 98.7 F Pulse Rate 67 64 Respiratory 19 18 Rate Blood Pressure 83/53 105/67 O2 Sat by Pulse 97 92 Oximetry - Labs CBC & Chem 7: 05/12/19 09:13 05/12/19 09:13 Labs: Abnormal lab results 05/09/19 05/11/19 05/12/19 Range/Units 17:43 16:16 09:13 RBC 2.76 L (3.65-5.03) M/mm3 Hgb 8.1 L (10.1-14.3) gm/dl Hct 24.1 L (30.3-42.9) % RDW 20.1 H (13.2-15.2) % Carbon Dioxide (22-30) mmol/L Creatinine (0.7-1.2) mg/dL Glucose (65-100) mg/dL POC Glucose 119 H (70-105) Alkaline Phosphatase (35-129) units/L Albumin (3.9-5) g/dL Crossmatch See Detail 05/12/19 Range/Units 09:13 RBC (3.65-5.03) M/mm3 Hgb (10.1-14.3) gm/dl Hct (30.3-42.9) % RDW (13.2-15.2) % Carbon Dioxide 17 L (22-30) mmol/L Creatinine 1.4 H (0.7-1.2) mg/dL Glucose 103 H (65-100) mg/dL POC Glucose (70-105) Alkaline Phosphatase 187 H (35-129) units/L Albumin 3.8 L (3.9-5) g/dL Crossmatch
[2019-05-12] MEDS ORDERED: traMADol 50 MG TAB PO PRN (16:44)
[2019-05-13] MEDS: LEVOTHYROXINE 150 MCG TAB PO SCH (05:58)
[2019-05-13] MEDS: SODIUM CHLORIDE 0.9% 1000 ML 1,000 ML IV SCH (05:58)
[2019-05-13 06:10] VITALS: BP 101/59
[2019-05-13] MEDS: INSULIN LISPRO 100 UNIT/ML SUB-Q SCH (07:47)
[2019-05-13] MEDS: FERROUS SULFATE 325 MG TAB PO SCH (09:51)
[2019-05-13] MEDS: SERTRALINE 50 MG TAB PO SCH (09:54)
[2019-05-13] MEDS: DOCUSATE SODIUM 100 MG CAP PO SCH (09:57)
--- NOTE | 2019-05-13 10:14 | Discharge Summary ---
Providers - Providers Date of Admission: 05/09/19 22:48 Date of discharge: 05/13/19 Attending physician: JACKI ALATORRE 05/09/19 22:48 Consult to Physician [CONS] Routine Comment: Consulting Provider: ERNESTINE ALY Physician Instructions: Reason For Exam: Dysfunctional uterine bleeding Primary care physician: LAND [facility]ANNER Hospitalization Reason for admission: severe anemia from acute blood loss due to vagina bleeding Condition: Fair Pertinent studies: Transfusion ultrasound showed no significant abnormality Procedures: None Hospital course: 28-year-old female with history of dysfunctional uterine bleeding, diabetes, hypothyroidism/Parth's, lymphedema, and chronic anemia who presents to [facility] ED with complaints of vaginal bleeding since 04/19/2019 and generalized weakness. Pt's moises is present at bedside and has assisted in providing history. Patient states that she has been experiencing vaginal bleeding since 04/19/2019 without cessation. She complains of shortness of breath with exertion and generalized weakness. Patient states that relocated from [place] to [place] with her fiance approximately 2 months ago and does not have insurance or a primary care provider. She usually takes iron supplements 3 times a day but has been unable to do so because she ran out of her meds. Admits to receiving blood transfusions in the past, last transfusion was in 2016. Denies n/v/d, fever, headache, hemoptysis, hematemesis, or hematochezia. Admits to mild BLE discomfort related to lymphedema. On admission hemoglobin was found to be 5.1. Patient had diabetes mellitus and hypertension. Diabetes mellitus controlled with sliding scale. Hemoglobin A1c was 6.9. Patient was given IV fluids for hypotension. Medications to worsen her hypertension were held. She was given 2 units of packed red blood cell. CAMERA PROTOTYPING ENGINEER consult was obtained. Hemoglobin improved to 8.1. Vagina bleeding resolved. Patient is damp for being discharged today to follow up from PCP in 3 days and gynecology in one week. Patient complains of chronic low back pain which was requested and some pain medication. Disposition: TO HOME OR SELFCARE Time spent for discharge: 35 min - Discharge Diagnoses (1) Anemia requiring transfusions Status: Acute (2) DUB (dysfunctional uterine bleeding) Status: Acute (3) Hypotension Status: Acute Core Measure Documentation - Palliative Care Palliative Care/ Comfort Measures: Not Applicable - Core Measures Any of the following diagnoses?: none Exam - Physical Exam Narrative exam: Constitutional: Well-nourished well-developed. In no distress. Morbidly obese Head: Normocephalic atraumatic Eyes: Conjunctiva palor, Pupils are equal round and reactive to light Nose: No enlarged turbinates, no septal deviation. Mouth: Moist mucous membranes. Neck: Supple no thyromegaly. No bruit. No JVD Heart: Regular rate and rhythm, S1-S2 normal. No rubs murmurs or gallop Lungs: Clear to auscultation bilaterally. no rales or rhonchi Abdomen: Soft, nontender. Bowel sound are present. Extremities: No edema, no cyanosis, no clubbing. Neuro: Alert oriented Oriented x3. No focal sensory or motor deficit. Skin: No rashes or hyperpigmented spots Musculoskeletal system: No joint pain or swelling Hematological: No petechia or subcutanous hemorrhages. Immunological: No multiple septic spots on the skin Lymphatic: No generalized lymphadenopathy Psychiatry: Euthymic. Calm. - Constitutional Vitals: Temp Pulse Resp BP Pulse Ox 98.5 F 69 20 101/59 98 05/13/19 06:07 05/13/19 06:07 05/13/19 06:07 05/13/19 06:07 05/13/19 06:07 Plan Activity: fall precautions Weight Bearing Status: Weight Bear as Tolerated Diet: regular Follow up with: PRIMARY CARE, [Primary Care Provider] - 3-5 Days Prescriptions: Docusate Sodium [Colace CAP] 100 mg PO BID #30 capsule Ferrous Sulfate [Feosol 325 MG tab] 325 mg PO BID #60 tablet Insulin Aspart (Nf) [NovoLOG Flexpen] 3 unit SUB-Q QACHS #100 units Levothyroxine [Synthroid] 300 mcg PO DAILY@0600 #30 tablet traMADoL [Ultram 50 MG tab] 50 mg PO BID PRN #9 tablet PRN Reason: Pain, Moderate (4-6) Ergocalciferol [Vitamin D2] 50,000 unit PO Fr #4 capsule Sertraline [Zoloft] 50 mg PO QDAY #30 tablet
[2019-05-17] MEDS ORDERED: ERGOCALCIFEROL (VIT D2) 50,000 UNIT CAP PO SCH (15:00)
== END 2019-05-13 11:38 | disposition home or self-care (01) | DRG 760 ==
LOC: ED 15:25 → 3A 22:48
PROVIDERS: ADMIT Internal Medicine; ATTEND Family Medicine
PROC: 30233N1 Transfusion of Nonautologous Red Blood Cells into Peripheral Vein, Percutaneous Approach (ICD-10-PCS; principal; 2019-05-09)
DX: N93.8 Other specified abnormal uterine and vaginal bleeding (principal); D62 Acute posthemorrhagic anemia; I95.9 Hypotension, unspecified; E11.9 Type 2 diabetes mellitus without complications; E03.9 Hypothyroidism, unspecified; E06.3 Autoimmune thyroiditis; I89.0 Lymphedema, not elsewhere classified; I10 Essential (primary) hypertension; F12.90 Cannabis use, unspecified, uncomplicated; Z88.0 Allergy status to penicillin; Z88.1 Allergy status to other antibiotic agents; Z79.4 Long term (current) use of insulin; Z79.899 Other long term (current) drug therapy; Z87.891 Personal history of nicotine dependence
CPT/HCPCS: 36415; 36430; 76830; 76856; 80048; 80053; 81001; 82962; 83036; 84436; 84443; 84702; 84703; 85007; 85014; 85018; 85025; 85027; 86850; 86900; 86901; 86920; G0378; J1050; J2270; J7030; J7040; P9016; Q0162

== ENCOUNTER 2022-02-07 22:45 | Emergency (ER) | payer MEDICAID ==
--- NOTE | 2022-02-07 23:57 | XRay Report ---
LEFT TIBIA/FIBULA, 5 VIEWS INDICATION / CLINICAL INFORMATION: pain. COMPARISON: None available. FINDINGS: The tibia and fibula are intact. No fracture or malalignment. Large amount of soft tissue is seen at the level of the ankle. It is unclear if this is due to swelli ng or abundance of adipose tissue. IMPRESSION: No acute osseous abnormality. Signer Name: Kenna Castellanos MD Signed: 02/07/2022 11:52 PM Workstation Name: [id number]
[2022-02-08 01:07] LABS: ABG PH TNR pH Units (7.350-7.450)
[2022-02-08 01:08] LABS: ABG Base Excess TNR mmol/L (-2.0-3.0); ABG HCO3 TNR mmol/L (20.0-26.0); ABG Methemoglobin TNR % (0.0-1.5); ABG Oxygen Saturation TNR % (95.0-99.0); ABG PCO2 TNR mm Hg; ABG PO2 TNR mm Hg (80.0-90.0)
[2022-02-08] MEDS ORDERED: HYDROcodone/ACETAMINOPHEN 5-325 MG TAB PO ONE (02:41)
--- NOTE | 2022-02-08 02:41 | Emergency Department Report ---
ED Lower Extremity HPI - General Chief Complaint: Extremity Injury, Lower Stated Complaint: LEFT LEG PAIN Time Seen by Provider: 02/07/22 23:00 Source: patient, EMS Mode of arrival: Stretcher Limitations: No Limitations - History of Present Illness Initial Comments: LEFT LEG PAIN. PATIENT DENIES INJURY. PATIENT THINKS SHE MAY HAVE A BLOOD CLOT -: days(s) Injury: Leg: Left Place: home Severity: moderate Severity scale (0 -10): 4 Improves With: nothing Worsens With: nothing - Related Data Home Medications Medication Instructions Recorded Confirmed Last Taken Insulin Glargine [Lantus VIAL] 50 unit SUB-Q BID 04/16/21 04/16/21 04/16/21 Insulin Lispro [Humalog 100 10 units SQ TID 04/16/21 04/20/21 04/16/21 UNITS/ML Kwikpen] Multivit-Minerals/Folic Acid 400 mcg PO QDAY 04/20/21 04/20/21 04/16/21 [Multivitamin Gummies] Previous Rx's Medication Instructions Recorded Last Taken Type Levothyroxine [Synthroid] 300 mcg PO DAILY@0600 #30 tablet 05/13/19 04/16/21 Rx Naproxen [Naprosyn TAB] 500 mg PO BID PRN 7 Days #14 tablet 04/21/21 Unknown Rx Ondansetron [Zofran ODT TAB] 4 mg PO Q8HR PRN 30 Days #90 04/21/21 Unknown Rx tab.rapdis Oxycodone HCl/Acetaminophen 1 each PO Q6HR PRN 3 Days #12 04/21/21 Unknown Rx [Percocet 10/325 mg] tablet Pantoprazole [Protonix] 40 mg PO QDAY 30 Days #30 tablet 04/21/21 Unknown Rx Sucralfate [Carafate] 1 gm PO ACHS PRN 30 Days #1 bottle 04/21/21 Unknown Rx Allergies Allergy/AdvReac Type Severity Reaction Status Date / Time amoxicillin Allergy Severe Shortness Verified 04/20/21 09:33 of Breath Penicillins Allergy Severe Shortness Verified 04/20/21 09:33 of Breath ED Review of Systems ROS: Stated complaint: LEFT LEG PAIN Other details as noted in HPI Constitutional: denies: chills, fever Eyes: denies: eye pain, eye discharge, vision change ENT: denies: ear pain, throat pain Respiratory: denies: cough, shortness of breath, wheezing Cardiovascular: denies: chest pain, palpitations Endocrine: no symptoms reported Gastrointestinal: denies: abdominal pain, nausea, diarrhea Genitourinary: denies: urgency, dysuria, discharge Musculoskeletal: denies: back pain, joint swelling, arthralgia Skin: denies: rash, lesions Neurological: denies: headache, weakness, paresthesias Psychiatric: denies: anxiety, depression Hematological/Lymphatic: denies: easy bleeding, easy bruising ED Past Medical Hx - Past Medical History Hx Hypertension: No (Hypotension) Hx Congestive Heart Failure: No Hx Diabetes: Yes Hx Liver Disease: No Hx Seizures: No Hx Asthma: No Hx COPD: No Additional medical history: Hypothyroid, Parth's, Lymphadema, Anemia - Social History Smoking Status: Never Smoker - Medications Home Medications: Home Medications Medication Instructions Recorded Confirmed Last Taken Type Levothyroxine [Synthroid] 300 mcg PO DAILY@0600 #30 tablet 05/13/19 04/16/21 04/16/21 Rx Insulin Glargine [Lantus VIAL] 50 unit SUB-Q BID 04/16/21 04/16/21 04/16/21 History Insulin Lispro [Humalog 100 10 units SQ TID 04/16/21 04/20/21 04/16/21 History UNITS/ML Kwikpen] Multivit-Minerals/Folic Acid 400 mcg PO QDAY 04/20/21 04/20/21 04/16/21 History [Multivitamin Gummies] Naproxen [Naprosyn TAB] 500 mg PO BID PRN 7 Days #14 tablet 04/21/21 Unknown Rx Ondansetron [Zofran ODT TAB] 4 mg PO Q8HR PRN 30 Days #90 04/21/21 Unknown Rx tab.rapdis Oxycodone HCl/Acetaminophen 1 each PO Q6HR PRN 3 Days #12 04/21/21 Unknown Rx [Percocet 10/325 mg] tablet Pantoprazole [Protonix] 40 mg PO QDAY 30 Days #30 tablet 04/21/21 Unknown Rx Sucralfate [Carafate] 1 gm PO ACHS PRN 30 Days #1 bottle 04/21/21 Unknown Rx ED Physical Exam - General Limitations: No Limitations General appearance: alert, in no apparent distress - Head Head exam: Present: atraumatic, normocephalic - Eye Eye exam: Present: normal appearance - ENT ENT exam: Present: mucous membranes moist - Neck Neck exam: Present: normal inspection - Respiratory Respiratory exam: Present: normal lung sounds bilaterally. Absent: respiratory distress - Cardiovascular Cardiovascular Exam: Present: regular rate, normal rhythm. Absent: systolic murmur, diastolic murmur, rubs, gallop - GI/Abdominal GI/Abdominal exam: Present: soft, normal bowel sounds - Extremities Exam Extremities exam: Present: normal inspection - Expanded Lower Extremity Exam Left Lower Leg exam: Present: tenderness, swelling - Back Exam Back exam: Present: normal inspection - Neurological Exam Neurological exam: Present: alert, oriented X3 - Psychiatric Psychiatric exam: Present: normal affect, normal mood - Skin Skin exam: Present: warm, dry, intact, normal color. Absent: rash ED Course Vital Signs 02/07/22 22:50 Temperature 97.4 F L Pulse Rate 91 H Respiratory 16 Rate Blood Pressure 138/88 [Right] O2 Sat by Pulse 100 Oximetry Critical care attestation.: If time is entered above; I have spent that time in minutes in the direct care of this critically ill patient, excluding procedure time. ED Disposition Clinical Impression: Left leg pain Disposition: 01 HOME / SELF CARE / HOMELESS Is pt being admited?: No Does the pt Need Aspirin: No Condition: Stable Instructions: Pain Without a Known Cause Referrals: LATONYA ADAMS MD [Primary Care Provider] - 3-5 Days
--- NOTE | 2022-02-08 03:43 | Vascular Lab Report ---
DUPLEX DOPPLER LOWER EXTREMITY VEINS, LEFT INDICATION: Left lower extremity pain. TECHNIQUE: Duplex doppler imaging was performed through the veins of the left lower extremity using venous compr ession and other maneuvers. COMPARISON: None available. FINDINGS: Common femoral vein: Negative. Superficial femoral vein: Negative. Popliteal vein: Negative. Calf veins: Negative. Additional findings: None. IMPRESSION: 1. No sonographic evidence for DVT in the left lower extremity. Signer Name: Kenna Castellanos MD Signed: 02/08/2022 3:38 AM Workstation Name: [id number]
[2022-02-08 07:25] VITALS: BP 135/70
== END 2022-02-08 03:15 | disposition home or self-care (01) ==
LOC: ED 22:45
DX: M79.605 Pain in left leg (principal); Z88.0 Allergy status to penicillin; E11.9 Type 2 diabetes mellitus without complications
CPT/HCPCS: 82803; 99284